=== PATIENT | female | born 1995 ===

== ENCOUNTER 2017-03-16 23:07 | Emergency (ER) | payer OTHER ==
[2016-09-11 10:23] VITALS: BMI 21.9
--- NOTE | 2017-03-17 00:42 | OBHP ---
Datetime: 03/17/2017 00:33 IP Adm Impression: Term, intrauterine ; No Active Labor IP Chief Complaint Other: P0 at 38 weeks Gestation complains of painful uterine contractions. IP Admit Plan: Discharge home Admit Comment, IP Provider: Latent Phase of Labor. Reassuring Featal Status. Discharge home. Return if pain worsens or SROM> Instructions given. Pelvic Type - PN: Adequate Extremities - PN: Normal Abdomen - PN: Normal Back - PN: Normal Breast - PN: Not Done Lungs - PN: Normal Heart - PN: Normal Thyroid - PN: Not Done Neurologic - PN: Not Done HEENT - PN: Not Done General - PN: Normal Weight - Estimated: 2900 Presentation-Admit: Vertex FHR - Baseline A Provider: 140 Membranes, Provider: Intact Contraction Comments Provider: Q 2-3min Gestation - Est Wks by US: 38.0 Nitrazine Provider: Negative EGA AdmitDate IP: 38.0 Vital Signs Provider: Reviewed; Within Normal Limits IP Chief Complaint: Uterine contractions; Suspected ruptured membranes NICHD Variability Prov Fetus A: Moderate 6-25bpm FHR Category Provider Fetus A: Category I NICHD Decel Fetus A IP Provider: None Dilatation, Provider: 1 Effacement, Provider: 80 Station, Provider: 0 Genitourinary Exam: Normal DTRs - PN: Normal
--- NOTE | 2017-03-18 16:48 | OBPPN ---
Datetime: 03/18/2017 16:37 PP Pain Prov: Within normal limits PP Nausea Prov: Denies PP Flatus Prov: Yes PP BM Prov: No PP Breasts Prov: Normal PP Heart Prov: Normal PP Lungs Prov: Normal PP Abdomen/Uterus Prov: Normal PP Lochia Prov: Normal PP Vulva/Perineum Prov: Normal PP CVA Tenderness Prov: Normal PP Extremities Prov: Normal PP C/S Incision Prov: Not Applicable PP Progress Prov: Normal PP Comments Phys Exam Prov: Skin: warm, dry, intact Abdomen: Soft. Fundus firm, mobile, non tender at umbilicus. Mild lochia rubra. Extremities: no calf tenderness All ohter systems reviewd and aare negative PP Impression Prov: Normal progression PP Plan Prov: Continue present management PP Progress Note Prov: Patient received in room 455, approximately 1300 hours: attending to in [facility]. Breasfeeding. Denies nausea, vomiting. No BM as yet. P.E.: as above. Small, in NAD. Awake, alert, oriented to time, person and place. Pleasant and coop erative - PPD#1 H/H 11.4/34.9 Assessment: PPD#1 21 y.o. P1, S/P uncomplicated . Afebrile, vital signs stable. Clinically sta ble. Plan: 1) Continue present management 2) Anticipate discharge home 03/19/17 Vital Signs Provider PP: Reviewed
--- NOTE | 2017-03-19 08:25 | OBPPN ---
Datetime: 03/19/2017 08:21 PP Pain Prov: Within normal limits PP Nausea Prov: Denies PP Flatus Prov: Yes PP Abdomen/Uterus Prov: Normal PP Lochia Prov: Normal PP Extremities Prov: Normal PP Comments Phys Exam Prov: fudus below umblicus ext no edema,no calf ten PP Impression Prov: Normal progression PP Plan Prov: Discharge PP Progress Note Prov: pt was seen at bed side, pain under control, non/v, tolerating deit, voiding, min lochia, flatus+ ppd#2 s/p dc home no sex motrin prn f/u in 6weeks Vital Signs Provider PP: Reviewed; Within Normal Limits
--- NOTE | 2017-03-19 08:31 | OBDCSUM ---
Datetime: 03/19/2017 08:27 Discharged to, Provider: Home Follow up at, Provider: [facility] Disch Instr Activity: Normal activity Disch Instr Diet: Regular Discharge Diagnosis, Provider: Term Delivered Follow up in weeks, Provider: clinic Disch Activity Restrictions: No exercising; No lifting; No driving; Minimize walking; Minimize stair -climbing; No sexual activity; Nothing in vagina - [place], tampons, douche Discharge Comment, Provider: no sex motrin prn f/u in 6weeks Discharge Diagnosis Prov Other: s/p
== END 2017-03-17 00:30 | disposition home or self-care (01) ==
LOC: C.EROB 23:07
DX: O47.1 False labor at or after 37 completed weeks of gestation (principal); Z3A.38 38 weeks gestation of pregnancy

== ENCOUNTER 2017-03-17 05:20 | Inpatient (IN) | payer OTHER ==
[2016-09-11 10:23] VITALS: BMI 21.9
--- NOTE | 2017-03-17 07:00 | OBHP ---
Datetime: 03/17/2017 06:52 IP Adm Impression: Term, intrauterine ; Active labor IP Chief Complaint Other: 21 at 38 weeks Gestation complains of painful uterine contractions, second presentation to [facility]. No LOF, no vaginal bleeding IP Admit Plan: Admit to unit; Initiate labor protocol Admit Comment, IP Provider: Latent Phase of Labor. Admit for analgesia and GBS prophylaxis. Pelvic Type - PN: Adequate Extremities - PN: Normal Abdomen - PN: Normal Back - PN: Normal Breast - PN: Not Done Lungs - PN: Normal Heart - PN: Normal Thyroid - PN: Not Done Neurologic - PN: Not Done HEENT - PN: Not Done General - PN: Normal Weight - Estimated: 3000 Presentation-Admit: Vertex FHR - Baseline A Provider: 140 Membranes, Provider: Intact Contraction Comments Provider: Q 2min. Gestation - Est Wks by US: 38.0 IP Hx Assessment: The History has been Reviewed and is Current EGA AdmitDate IP: 38.0 Vital Signs Provider: Reviewed; Within Normal Limits IP Chief Complaint: Uterine contractions NICHD Variability Prov Fetus A: Moderate 6-25bpm NICHD Accel Fetus A IP Provider: 15X15 FHR Category Provider Fetus A: Category I NICHD Decel Fetus A IP Provider: None Dilatation, Provider: 2 Effacement, Provider: 80 Station, Provider: 0 Genitourinary Exam: Normal DTRs - PN: Normal
[2017-03-17] MEDS ORDERED: Penicillin G 5 Million Unit Vial IVPB ONE ×2 (07:10→07:30)
[2017-03-17] MEDS ORDERED: Nalbuphine 20 mg/ml Inj (1 ml) ONE (07:12)
[2017-03-17] MEDS ORDERED: Nalbuphine 20 mg/ml Inj (1 ml) IVP PRN (07:15)
[2017-03-17] MEDS ORDERED: Lactated Ringer's 1,000 ML IV SCH (07:15)
--- NOTE | 2017-03-17 07:38 | OBADHP ---
Datetime: 03/17/2017 06:52 IP Chief Complaint Other: 21 at 38 weeks Gestation complains of painful uterine contractions, second presentation to [facility]. No LOF, no vaginal bleeding IP Admit Plan Other: Analgesia Admit Comment, IP Provider: Latent Phase of Labor. Admit for analgesia and GBS prophylaxis. Addendum:H_P unchanged from [facility]. Pelvic Type - PN: Adequate Extremities - PN: Normal Abdomen - PN: Normal Back - PN: Normal Breast - PN: Not Done Lungs - PN: Normal Heart - PN: Normal Thyroid - PN: Not Done Neurologic - PN: Not Done HEENT - PN: Not Done General - PN: Normal Weight - Estimated: 3000 Presentation-Admit: Vertex FHR - Baseline A Provider: 140 Membranes, Provider: Intact Contraction Comments Provider: Q 2min. Gestation - Est Wks by US: 38.0 IP Hx Assessment: The History has been Reviewed and is Current Vital Signs Provider: Reviewed; Within Normal Limits IP Chief Complaint: Uterine contractions NICHD Variability Prov Fetus A: Moderate 6-25bpm NICHD Accel Fetus A IP Provider: 15X15 FHR Category Provider Fetus A: Category I NICHD Decel Fetus A IP Provider: None Dilatation, Provider: 2 Effacement, Provider: 80 Station, Provider: 0 Genitourinary Exam: Normal DTRs - PN: Normal EGA AdmitDate IP: 38.0 IP Adm Impression: Term, intrauterine ; Active labor IP Admit Plan: Admit to unit; Initiate labor protocol Datetime: 03/17/2017 00:33 Nitrazine Provider: Negative
[2017-03-17 08:25] LABS: BASO % 0.2 % (0.0-2.0); EOS % 0.1 % (0.0-4.0); HEMATOCRIT 35.9 % (34.0-47.0); LYMPH # 2.6 K/uL (1.0-4.3); LYMPH % 18.5 % (20.0-40.0); MEAN CELL VOLUME 88.2 fL (81.0-99.0); MEAN CORPUSCULAR HEMOGLOBIN 29.2 pg (27.0-31.0); MEAN CORPUSCULAR HGB CONC 33.1 g/dL (33.0-37.0); MEAN PLATELET VOLUME 9.7 fL (7.2-11.7); MONO # 0.9 K/uL (0.0-0.8); MONO % 6.2 % (0.0-10.0); NRBC % 0.1 % (0.0-2.0); RED CELL DISTRIBUTION WIDTH 14.6 % (11.5-14.5); WHITE BLOOD COUNT 14.1 K/uL (4.8-10.8)
[2017-03-17 08:38] LABS: RBC URINE 3 /hpf (0-3); URINE BACTERIA RARE (<OCC); URINE BILIRUBIN NEGATIVE (NEGATIVE); URINE BLOOD NEGATIVE (NEGATIVE); URINE COLOR Yellow (YELLOW); URINE GLUCOSE (UA) NORMAL (Normal); URINE KETONE NEGATIVE (NEGATIVE); URINE LEUKOCYTE ESTERASE NEG Leu/uL (Negative); URINE PROTEIN 1+ mg/dL (NEGATIVE); URINE UROBILINOGEN NORMAL mg/dL (0.2-1.0); WBC URINE 3 /hpf (0-5)
[2017-03-17 08:52] LABS: GFR AFRICAN-AMERICAN > 60
[2017-03-17 08:53] LABS: GLUCOSE,RANDOM 68 mg/dL (65-105)
[2017-03-17] MEDS ORDERED: Morphine 1 mg/ml preservative-free Inj(Duramorph) ONE (10:54)
[2017-03-17] MEDS ORDERED: ePHEDrine 50 mg/ml Inj ONE (10:55)
--- NOTE | 2017-03-17 11:33 | OBPN ---
Datetime: 03/17/2017 11:31 IP Progress Impression: Normal progression of labor IP Procedures: Sterile Vag Exam FHR - Baseline A Provider: 120 IP Progress Note Comment: pt was examined at bed side ve 3/80/0 pt request epidural anticipate cont gbs pro NICHD Accel Fetus A IP Provider: 15X15 FHR Category Provider Fetus A: Category I NICHD Variability Prov Fetus A: Moderate 6-25bpm Dilatation, Provider: 3 Effacement, Provider: 80 Station, Provider: 0 Datetime: 03/17/2017 06:52 Membranes, Provider: Intact Contraction Comments Provider: Q 2min. Gestation - Est Wks by US: 38.0 Weight - Estimated: 3000 Presentation-Admit: Vertex Vital Signs Provider: Reviewed; Within Normal Limits NICHD Decel Fetus A IP Provider: None Datetime: 03/17/2017 00:33 Nitrazine Provider: Negative
[2017-03-17] MEDS ORDERED: Bupivacaine HCl 0.25% PF (10 ml) Inj ONE (12:56)
[2017-03-17] MEDS ORDERED: Bupivacaine 0.125%/FentaNYL 200 ML EPI ONE (13:17)
[2017-03-17] MEDS ORDERED: Oxytocin 30 UNIT 30 UNITS/500 ML BAG IV ONE (13:55)
[2017-03-17] MEDS ORDERED: Oxytocin 30 UNIT 30 UNITS/500 ML BAG IV SCH ×2 (14:15→16:30)
--- NOTE | 2017-03-17 15:40 | OBPN ---
Datetime: 03/17/2017 15:37 IP Progress Impression: Normal progression of labor IP Procedures: Sterile Vag Exam FHR - Baseline A Provider: 130 IP Progress Note Comment: pt was examined at bed side ve 9/100/0 arom clear cont pitocin anticipate Vital Signs Provider: Reviewed; Within Normal Limits NICHD Accel Fetus A IP Provider: 15X15 FHR Category Provider Fetus A: Category I NICHD Variability Prov Fetus A: Moderate 6-25bpm Dilatation, Provider: 9 Effacement, Provider: 100 Station, Provider: 0 NICHD Decel Fetus A IP Provider: Variable
[2017-03-17] MEDS ORDERED: Oxycodone/Acetaminophen 5/325 mg Tab PO PRN (16:24)
--- NOTE | 2017-03-17 16:57 | OBDS ---
DELIVERY PERSONNEL Delivery Doctor: Vickie Felix MD Cooking Chef: Claritza Fleming RN Anesthesiologist: MATERNAL INFORMATION Delivery Anesthesia: Epidural Medications in Delivery: Pitocin 30 units IV Estimated Blood Loss (ml): 200 Placenta Cultured: No Maternal Complications: None RN Comments: Liveborn Baby Girl. 9-9 Provider Comments: baby deliverd in gina. endometrum clean 9/9 no com LABOR SUMMARY EDC: 03/31/2017 00:00 No. Babies in Womb: 1 Attempted: No Labor Anesthesia: Epidural LABOR INFORMATION Reason for Induction: Other Onset of Labor: 03/17/2017 07:14 Complete Dilatation: 03/17/2017 16:31 Oxytocin: Induction Group B Beta Strep: Positive Antibiotics # of Doses: 3 Antibiotics Time of Last Dose: Pen G 2.5 MU @1545 Steroids Given: None Reason Steroids Not Administered: Not Applicable MEMBRANES Membranes Rupture Method: Artificial Rupture of Membranes: 03/17/2017 15:35 Length of Rupture (hrs): 1.18 Amniotic Fluid Color: Clear Amniotic Fluid Amount: Moderate Amniotic Fluid Odor: Normal STAGES OF LABOR Stage 1 hrs: 9 Stage 1 min: 17 Stage 2 hrs: 0 Stage 2 min: 15 VAGINAL DELIVERY Episiotomy: None Laceration Extension: First Degree Laceration Type: Perineal BABY A INFORMATION Delivery Date/Time: 03/17/2017 16:46 Forceps: N/A Vacuum Extraction: N/A SHOULDER DYSTOCIA BABY A Delivery Date/Time: 03/17/2017 16:46 PRESENTATION/POSITION BABY A Presentation: Cephalic Cephalic Presentation: Vertex Vertex Position: Left Occipital Anterior Breech Presentation: N/A PLACENTA INFORMATION BABY A Placenta Method of Delivery: Spontaneous Placenta Status: Delivered INFANT INFORMATION BABY A Gestational Age at Delivery: 38.0 IDENTIFICATION/MEDS BABY A ID Band Number: [id number] Sensor Number: [id number] CORD INFORMATION BABY A Nuchal Cord : N/A
[2017-03-18 08:26] LABS: HEMATOCRIT 34.9 % (34.0-47.0); MEAN CELL VOLUME 89.1 fL (81.0-99.0); MEAN CORPUSCULAR HGB CONC 32.5 g/dL (33.0-37.0); MEAN PLATELET VOLUME 8.9 fL (7.2-11.7); RED CELL DISTRIBUTION WIDTH 14.4 % (11.5-14.5); WHITE BLOOD COUNT 12.7 K/uL (4.8-10.8)
[2017-03-18 08:54] VITALS: O2SAT 99
[2017-03-19 10:51] VITALS: BP 124/74; PULSE 68; RESP 18; TEMP 97.5
== END 2017-03-19 14:20 | disposition home or self-care (01) | DRG 373 ==
LOC: C.EROB 05:20 → C.4D 06:55 → C.4M 19:30
PROVIDERS: ADMIT Obstetrics & Gynecology; ATTEND Obstetrics & Gynecology
PROC: 10E0XZZ Delivery of Products of Conception, External Approach (ICD-10-PCS; principal; 2017-03-17)
PROC: 0HQ9XZZ Repair Perineum Skin, External Approach (ICD-10-PCS; 2017-03-17)
PROC: 10907ZC Drainage of Amniotic Fluid, Therapeutic from Products of Conception, Via Natural or Artificial Opening (ICD-10-PCS; 2017-03-17)
DX: O70.0 First degree perineal laceration during delivery (principal); Z37.0 Single live birth; Z3A.38 38 weeks gestation of pregnancy